=== PATIENT | male | born 1980 | race Caucasian/White ===

== ENCOUNTER 2017-10-10 12:31 | Emergency (ER) | payer SELFPAY ==
[2017-10-10 13:18] LABS: ALT (SGPT) 29 U/L (8-55); AST (SGOT) 20 U/L (5-34); Albumin 4.1 g/dL (3.5-5.0); Alkaline Phosphatase 97 U/L (40-150); Anion Gap 14 mmol/L (10-20); BUN (Urea Nitrogen) 20 mg/dL (8.9-20.6); Bilirubin, Total 0.2 mg/dL (0.2-1.2); Calc. Creatinine Clearance 0 mL/min (70-130); Calcium 9.4 mg/dL (7.8-10.44); Carbon Dioxide 23 mmol/L (22-29); Chloride 109 mmol/L (98-107); Estimated GFR-MDRD Greater than 90; Globulin 3.3 g/dL (2.4-3.5); Glucose 96 mg/dL (70-105); Potassium 3.9 mmol/L (3.5-5.1); Protein, Total 7.4 g/dL (6.0-8.3); Sodium 142 mmol/L (136-145)
[2017-10-10 13:19] LABS: CKMB 1.1 ng/mL (0-6.6); Troponin I Less than 0.010 ng/mL (< 0.028)
[2017-10-10 13:21] LABS: #Basophils 0.2 thou/uL (0.0-0.2); #Lymphocytes 3.3 thou/uL (1.20-3.40); #Monocytes 0.7 thou/uL (0.11-0.59); #Neutrophils 7.3 thou/uL (1.40-6.50); %Basophils 1.9 % (0.0-1.0); %Lymphocytes 28.7 % (21.0-51.0); %Monocytes 5.8 % (0.0-10.0); %Neutrophils 63.6 % (42.0-75.0); Eosinophils 3 % (0-10); Hemoglobin 13.7 g/dL (14.0-18.0); Lymphocytes 45 % (21-51); MDiff Complete? YES; Mean Corpuscular HGB CONC 34.9 g/dL (32.0-36.0); Mean Corpuscular Hemoglobin 28.1 pg (27.0-31.0); Mean Corpuscular Volume 80.4 fl (80.0-94.0); Mean Platelet Volume 5.3 fL (7.4-10.4); Monocytes 5 % (0-10); Neutrophil 47 % (42-75); Platelet Count 393 thou/uL (130-400); Red Blood Cell (RBC) Count 4.88 mill/uL (4.70-6.10); White Blood Cell (WBC) Count 11.5 thou/uL (4.8-10.8)
== END 2017-10-10 13:35 | disposition home or self-care (01) ==
LOC: BURERS 12:31
DX: R42 Dizziness and giddiness (principal); K21.9 Gastro-esophageal reflux disease without esophagitis; F17.210 Nicotine dependence, cigarettes, uncomplicated
CPT/HCPCS: 80053; 82553; 84484; 85025; 93005

== ENCOUNTER 2018-01-18 11:52 | Emergency (ER) | payer SELFPAY ==
[2018-01-18 12:43] LABS: Bilirubin Small (Negative); Clarity Slightly Cloudy (Clear); Glucose, Urine (Dipstick) Negative (Negative); Leukocyte Negative (Negative); Nitrite Negative (Negative); Protein, Urine (Dipstick) 30 mg/dL (Neg-Trace); Specific Gravity, Urine 1.025 (1.005-1.030)
[2018-01-18 12:44] LABS: Bacteria/HPF Rare-Few HPF (None Seen); Blood, Urine Negative (Negative); RBC/HPF 0-3 HPF (0-3); Squamous Epithelial None Seen HPF (0-3); WBC/HPF 0-3 HPF (0-3)
[2018-01-18] MEDS ORDERED: Ketorolac Tromethamine 60 MG/2 ML VIAL ONE (12:59)
[2018-01-18] MEDS ORDERED: Cyclobenzaprine 10 MG TAB ONE (13:04)
--- NOTE | 2018-01-18 19:28 | RAD ---
LUMBAR SPINE THREE VIEWS: 01/18/2018 FINDINGS: No fracture, dislocation, or disk space narrowing is seen. There are the beginnings of some bony spu rring in the lower lumbar spine, anteriorly, and perhaps some beginnings of calcification or ossifica tion of the anterior longitudinal ligament, in the L3 through L5 levels. Additionally, I would note, on the AP view, that the SI joints are fairly poorly defined. The combination of some ossification of the anterior longitudinal ligament and poorly defined SI joints raises at least the possibility of entities such as ankylosing spondylitis. This may be worth further testing and/or MRI to better dis play the SI joints and the remainder of the spine. The hip joints were symmetrical. 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 This, in concert with poorly defined sacroiliac joints, should prompt further investigation, as nancy cribed above. CODE T POS: HOME
== END 2018-01-18 13:30 | disposition home or self-care (01) ==
LOC: BURERS 11:52
DX: S33.5XXA Sprain of ligaments of lumbar spine, initial encounter (principal); F17.210 Nicotine dependence, cigarettes, uncomplicated; X58.XXXA Exposure to other specified factors, initial encounter
CPT/HCPCS: 72100; 81003; 81015; 96372; J1885

== ENCOUNTER 2018-04-08 14:59 | Emergency (ER) | payer SELFPAY | END 2018-04-08 15:25 | disposition home or self-care (01) | LOC: BURERS 14:59 | DX: R07.89 Other chest pain (principal); Z87.891 Personal history of nicotine dependence | CPT/HCPCS: 99283 ==

== ENCOUNTER 2018-11-16 13:22 | Emergency (ER) | payer SELFPAY ==
[2018-11-16] MEDS ORDERED: Ondansetron PF 4 MG/2 ML Vial ONE (13:46)
[2018-11-16] MEDS ORDERED: Pantoprazole 40 MG VIAL ONE (13:46)
[2018-11-16 13:51] LABS: #Basophils 0.2 thou/uL (0.0-0.2); #Eosinphils 0.3 thou/uL (0.0-0.7); #Lymphocytes 3.3 thou/uL (1.20-3.40); #Monocytes 0.3 thou/uL (0.11-0.59); #Neutrophils 6.2 thou/uL (1.40-6.50); %Basophils 1.9 % (0.0-1.0); %Eosinophils 2.6 % (0.0-10.0); %Lymphocytes 32.3 % (21.0-51.0); %Monocytes 2.8 % (0.0-10.0); %Neutrophils 60.4 % (42.0-75.0); Hemoglobin 15.4 g/dL (14.0-18.0); Mean Corpuscular HGB CONC 33.6 g/dL (32.0-36.0); Mean Corpuscular Hemoglobin 28.1 pg (27.0-31.0); Mean Corpuscular Volume 83.5 fL (78.0-98.0); Platelet Count 423 thou/uL (130-400); RBC Distribution Width 13.3 % (11.5-14.5); Red Blood Cell (RBC) Count 5.48 mill/uL (4.70-6.10); White Blood Cell (WBC) Count 10.2 thou/uL (4.8-10.8)
[2018-11-16 14:06] LABS: ALT (SGPT) 34 U/L (8-55); AST (SGOT) 22 U/L (5-34); Albumin 4.5 g/dL (3.5-5.0); Alkaline Phosphatase 104 U/L (40-150); Anion Gap 13 mmol/L (10-20); BUN (Urea Nitrogen) 15 mg/dL (8.9-20.6); Bilirubin, Total 0.6 mg/dL (0.2-1.2); Calc. Creatinine Clearance 0 mL/min (70-130); Calcium 10.1 mg/dL (7.8-10.44); Carbon Dioxide 26 mmol/L (22-29); Chloride 104 mmol/L (98-107); Estimated GFR-MDRD Greater than 90; Glucose 102 mg/dL (70-105); Lipase 13 U/L (8-78); Potassium 4.4 mmol/L (3.5-5.1); Protein, Total 8.5 g/dL (6.0-8.3); Sodium 139 mmol/L (136-145)
[2018-11-16] MEDS ORDERED: Ketorolac Tromethamine 30 MG/ML VIAL ONE (15:02)
[2018-11-16 15:07] LABS: Clarity Clear (Clear)
[2018-11-16 15:08] LABS: Bilirubin Negative (Negative); Blood, Urine Negative (Negative); Glucose, Urine (Dipstick) Negative (Negative); Leukocyte Negative (Negative); Nitrite Negative (Negative); Protein, Urine (Dipstick) Trace mg/dL (Neg-Trace); Specific Gravity, Urine 1.015 (1.005-1.030); Urobilinogen 0.2 mg/dL (0.2-1.0)
--- NOTE | 2018-11-16 15:36 | CT ---
CT ABDOMEN AND PELVIS WITH IV CONTRAST: Date: 11/16/18 Multiple axial tomograms obtained through abdomen and pelvis with IV enhancement. INDICATION: Abdominal cramping and abdominal pain. No comparison. FINDINGS: Lung bases clear. There is a small fixed sliding-type diaphragmatic hernia. The liver, spleen, and pancreas are unremarkable. Stomach and duodenum are unremarkable. Adrenal glands and kidneys are unremarkable. Small bowel loops appear normal. The appendix is normal. Colon is unremarkable. Aorta normal caliber. Nonspecific periaortic lymph nodes. Urinary bladder is distended and unremarkable. Prostate appears normal. IMPRESSION: No evidence of acute intra-abdominal process. POS: [facility]
== END 2018-11-16 15:20 | disposition home or self-care (01) ==
LOC: BURERS 13:22
DX: R10.9 Unspecified abdominal pain (principal); R11.0 Nausea; Z87.891 Personal history of nicotine dependence; Z79.899 Other long term (current) drug therapy
CPT/HCPCS: 74177; 80053; 81003; 83690; 85025; 96361; 96374; 96375; C9113; J1885; J2405

== ENCOUNTER 2020-07-13 15:36 | Emergency (ER) | payer BC, OTHER ==
[2020-07-13 16:48] LABS: #Basophils 0.1 thou/uL (0.0-0.2); #Lymphocytes 1.3 thou/uL (1.20-3.40); #Monocytes 0.6 thou/uL (0.11-0.59); %Basophils 0.5 % (0.0-1.0); %Eosinophils 0.4 % (0.0-10.0); %Lymphocytes 10.7 % (21.0-51.0); %Monocytes 5.1 % (0.0-10.0); %Neutrophils 83.4 % (42.0-75.0); Hemoglobin 15.3 g/dL (14.0-18.0); Mean Corpuscular HGB CONC 30.6 g/dL (32.0-36.0); Mean Corpuscular Hemoglobin 26.7 pg (27.0-31.0); Mean Corpuscular Volume 87.4 fL (78.0-98.0); Mean Platelet Volume 6.3 fL (7.4-10.4); Platelet Count 387 thou/uL (130-400); RBC Distribution Width 12.9 % (11.5-14.5); Red Blood Cell (RBC) Count 5.73 mill/uL (4.70-6.10)
[2020-07-13 17:01] LABS: Bilirubin Small (Negative); Blood, Urine Negative (Negative); Clarity Clear (Clear); Glucose, Urine (Dipstick) Negative (Negative); Ketone, Urine Trace mg/dL (Negative); Leukocyte Negative (Negative); Nitrite Negative (Negative); Protein, Urine (Dipstick) 100 mg/dL (Neg-Trace)
[2020-07-13 17:02] LABS: ALT (SGPT) 71 U/L (8-55); AST (SGOT) 43 U/L (5-34); Albumin 4.4 g/dL (3.5-5.0); Alkaline Phosphatase 117 U/L (40-110); Anion Gap 17 mmol/L (10-20); BUN (Urea Nitrogen) 15 mg/dL (8.9-20.6); Bilirubin, Total 0.7 mg/dL (0.2-1.2); Calc. Creatinine Clearance 0 mL/min (70-130); Calcium 9.4 mg/dL (7.8-10.44); Carbon Dioxide 23 mmol/L (22-29); Chloride 102 mmol/L (98-107); Estimated GFR-MDRD 63; Globulin 4.5 g/dL (2.4-3.5); Glucose 136 mg/dL (70-105); Potassium 3.6 mmol/L (3.5-5.1); Protein, Total 8.9 g/dL (6.0-8.3); Sodium 138 mmol/L (136-145)
[2020-07-13 17:06] LABS: Bacteria/HPF None Seen HPF (None Seen); RBC/HPF 0-3 HPF (0-3); Squamous Epithelial 0-3 HPF (0-3)
--- NOTE | 2020-07-13 17:49 | RAD ---
CHEST TWO VIEWS: 07/13/20 The heart is normal in size. The lungs are clear. No infiltrate or effusion was seen. There is no vas cular congestion or edema. The mediastinum appears normal. IMPRESSION: No acute thoracic finding. POS: HOME
[2020-07-14 21:18] LABS: SARS-CoV-2 MS2 Positive; SARS-CoV-2 N Gene Negative; SARS-CoV-2 S Gene Negative; SARS-CoV-2 by NAA Not Detected (NotDetected); SARS-CoV-2 orf1ab Negative
== END 2020-07-13 17:45 | disposition home or self-care (01) ==
LOC: BURERS 15:36
DX: J06.9 Acute upper respiratory infection, unspecified (principal); I10 Essential (primary) hypertension; Z20.828 Contact with and (suspected) exposure to other viral communicable diseases
CPT/HCPCS: 36415; 71046; 80053; 81003; 81015; 83605; 84443; 85025; 87635; 87804; U0003

== ENCOUNTER 2021-12-11 15:39 | Emergency (ER) | payer BC, OTHER, SELFPAY | END 2021-12-11 16:10 | disposition home or self-care (01) | LOC: BURERS 15:39 | DX: L73.2 Hidradenitis suppurativa (principal); I10 Essential (primary) hypertension; E66.9 Obesity, unspecified; F17.210 Nicotine dependence, cigarettes, uncomplicated | CPT/HCPCS: 99282 ==

== ENCOUNTER 2022-08-31 14:13 | Emergency (ER) | payer OTHER | END 2022-08-31 15:27 | disposition home or self-care (01) | LOC: BURERS 14:13 | DX: B34.9 Viral infection, unspecified (principal); I10 Essential (primary) hypertension; F17.210 Nicotine dependence, cigarettes, uncomplicated | CPT/HCPCS: 87804; 99283 ==

== ENCOUNTER 2022-12-16 07:33 | Emergency (ER) | payer OTHER, SELFPAY ==
[2022-12-16] MEDS ORDERED: Tetracaine 0.5% PF 4 ML BOT ONE (08:06)
[2022-12-16] MEDS ORDERED: Fluorescein Opthalmic Strip ONE (08:06)
== END 2022-12-16 09:22 | disposition home or self-care (01) ==
LOC: BURERS 07:33
DX: S05.01XA Injury of conjunctiva and corneal abrasion without foreign body, right eye, initial encounter (principal); I10 Essential (primary) hypertension; F17.210 Nicotine dependence, cigarettes, uncomplicated; X58.XXXA Exposure to other specified factors, initial encounter; Y92.69 Other specified industrial and construction area as the place of occurrence of the external cause
CPT/HCPCS: 99283

== ENCOUNTER 2025-04-08 11:32 | Emergency (ER) | payer BC ==
[2025-04-08] MEDS ORDERED: Lidocaine 1% PF 5 ML VIAL ONE (11:46)
[2025-04-08] MEDS ORDERED: Bacitracin 1 PK ONE (12:06)
== END 2025-04-08 13:48 | disposition home or self-care (01) ==
LOC: BURERS 11:32
DX: S61.211A Laceration without foreign body of left index finger without damage to nail, initial encounter (principal); I10 Essential (primary) hypertension; F17.210 Nicotine dependence, cigarettes, uncomplicated; Z79.899 Other long term (current) drug therapy; W26.8XXA Contact with other sharp object(s), not elsewhere classified, initial encounter
CPT/HCPCS: 12002; 99283